=== PATIENT | female | born 1990 | race Caucasian/White ===

== ENCOUNTER 2016-11-22 11:48 | Inpatient (IN) | payer OTHER ==
[~2016-11-22] VITALS: Ht 165.1 cm; Wt 76.2 kg
[2016-11-23] MEDS ORDERED: ACETAMINOPHEN 325 MG TABLET PO PRN
[2016-11-23] MEDS ORDERED: METHOCARBAMOL 750 MG TABLET PO PRN
[2016-11-23] MEDS ORDERED: HYDROXYZINE PAMOATE 25 MG CAPSULE PO PRN
[2016-11-23] MEDS ORDERED: LORAZEPAM 1 MG TABLET PO PRN ×2
[2016-11-23] MEDS ORDERED: DICYCLOMINE HCL 20 MG TABLET PO PRN
[2016-11-23] MEDS ORDERED: diphenhydrAMINE 50 MG CAPSULE PO PRN
[2016-11-23] MEDS ORDERED: CLONIDINE HCL 0.1 MG TABLET PO PRN
[2016-11-23] MEDS ORDERED: LORAZEPAM 2 MG/1 ML VIAL IM PRN
[2016-11-23] MEDS ORDERED: IBUPROFEN 600 MG TABLET PO PRN
[2016-11-23] MEDS ORDERED: BUPRENORPHINE HCL 2 MG TAB.SUBL SL PRN
[2016-11-23] MEDS ORDERED: MAG HYDROX/AL HYDROX/SIMETH 30 ML LIQUID UDC PO PRN
[2016-11-23] MEDS ORDERED: MAGNESIUM HYDROXIDE 30 ML LIQUID UDC PO PRN
[2016-11-23] MEDS ORDERED: ONDANSETRON ODT 4 MG TAB.RAPDIS SL PRN
[2016-11-23] MEDS ORDERED: LOPERAMIDE HCL 2 MG CAPSULE PO PRN ×2
[2016-11-23] MEDS ORDERED: ONDANSETRON 4 MG/2 ML VIAL IM PRN
[2016-11-23] MEDS ORDERED: MIRALAX 17 GM POWD.PACK PO PRN
[2016-11-23 00:40] VITALS: BP 132/79
[2016-11-23 01:55] LABS: *URINE HCG, QUAL NEGATIVE (NEGATIVE)
[2016-11-23] MEDS ORDERED: SERT50TA PO (02:57)
[2016-11-23] MEDS ORDERED: DOXY100C41 PO (02:57)
[2016-11-23] MEDS ORDERED: QUET100T PO (02:57)
[2016-11-23] MEDS ORDERED: DIVA500T7 PO (02:57)
[2016-11-23] MEDS ORDERED: BUPR-51 PO (02:57)
[2016-11-23 04:00] VITALS: BP 141/86
[2016-11-23 04:49] LABS: *AMPHETAMINE, URINE NEGATIVE (NEGATIVE); *BARBITURATE, URINE NEGATIVE (NEGATIVE); *CANNABINOID, URINE POSITIVE (NEGATIVE); *COCCAINE, URINE POSITIVE (NEGATIVE); *OPIATE, URINE POSITIVE (NEGATIVE); *PHENCYCLIDINE SCREEN,URINE NEGATIVE (NEGATIVE)
[2016-11-23 08:00] VITALS: BP 114/71
[2016-11-23 08:36] LABS: BASOPHILS # (AUTO) 0.1 K/uL (0.0-8.0); BASOPHILS % (AUTO) 0.8 % (0.0-2.0); EOSINOPHILS # (AUTO) 0.4 K/uL (0.0-0.7); EOSINOPHILS % (AUTO) 4.1 % (0.0-7.0); HEMATOCRIT 44.1 % (37-47); HEMOGLOBIN 15.5 G/DL (12.0-16.0); LYMPHOCYTES # (AUTO) 4.1 K/UL (0.8-4.8); MEAN CORPUSCULAR HGB CONC 35 g/dL (32.0-37.0); MONOCYTES # (AUTO) 0.7 K/UL (0.1-1.30); MONOCYTES % (AUTO) 7.1 % (0.0-11.0); NEUTROPHILS # (AUTO) 4.2 K/UL (1.8-8.9); PLATELET COUNT (AUTO) 325 K/UL (150-450); RED BLOOD CELL COUNT(AUTO) 4.84 MIL/UL (4.2-5.4); RED CELL DISTRIBUTION WIDTH 11.7 % (11.5-14.5); WHITE BLOOD COUNT (AUTO) 9.5 K/UL (4.0-11.2)
[2016-11-23 08:53] LABS: ETHANOL < 3 MG/DL (0-0)
[2016-11-23] MEDS ORDERED: TUBERCULIN,PURIF.PROT.DERIV. 5 TU/0.1 ML TEST ID ONE (09:00)
[2016-11-23 09:13] LABS: HIV-1 p24 ANTIGEN NON REACTIVE (NONREACTIVE); HIV-1/2 ANTIBODY NON REACTIVE (NONREACTIVE)
[2016-11-23] MEDS: MULTIVITAMINS,THERAPEUTIC TABLET PO SCH (09:29)
[2016-11-23 09:34] LABS: ALANINE AMINOTRANSFERASE 20 U/L (14-59); ALKALINE PHOSPHATASE 57 U/L (50-136); ASPARTATE AMINOTRANSFERASE 17 U/L (15-37); BILIRUBIN,TOTAL 0.9 mg/dL (0.2-1.0); CALCIUM 9.3 mg/dL (8.5-10.1); CARBON DIOXIDE 21 mmol/L (21-32); CHLORIDE 108 mmol/L (98-107); GFR 68 mL/min (>60); GLUCOSE 103 mg/dL (74-106); MAGNESIUM 2.2 mg/dL (1.8-2.4); POTASSIUM 3.5 mmol/L (3.5-5.1); SODIUM SERUM 143 mmol/L (136-145); TOTAL PROTEIN, SERUM 7.7 g/dL (6.4-8.2); UREA NITROGEN, BLOOD 7 mg/dL (7-18)
[2016-11-23 10:46] LABS: THYROID STIMULATING HORMONE 0.163 mIU/mL (0.358-3.740)
[2016-11-23 12:00] VITALS: BP 147/85
[2016-11-23] MEDS: SERTRALINE HCL 50 MG TABLET PO SCH (12:58)
[2016-11-23] MEDS: buPROPion XL 150 MG TAB.SR.24H PO SCH (12:58)
[2016-11-23] MEDS: BUPRENORPHINE HCL 2 MG TAB.SUBL SL SCH ×3 (13:43→22:19)
[2016-11-23] MEDS: GABAPENTIN 300 MG CAPSULE PO SCH ×2 (15:36→22:18)
[2016-11-23 16:00] VITALS: BP 126/79
[2016-11-23 20:00] VITALS: BP 128/90
[2016-11-23] MEDS: QUETIAPINE FUMARATE 100 MG TABLET PO SCH (22:18)
[2016-11-23] MEDS: DIVALPROEX 500 MG TABLET.DR PO SCH (22:18)
[2016-11-24] VITALS: BP 125/68
[2016-11-24 04:00] VITALS: BP 101/63
[2016-11-24 08:00] VITALS: BP 107/57
[2016-11-24] MEDS: PATIENT MAY USE OWN MED- MD OK PO SCH (08:57)
[2016-11-24] MEDS: GABAPENTIN 300 MG CAPSULE PO SCH ×3 (08:58→21:07)
[2016-11-24] MEDS: SERTRALINE HCL 50 MG TABLET PO SCH (08:59)
[2016-11-24] MEDS: buPROPion XL 150 MG TAB.SR.24H PO SCH (08:59)
[2016-11-24] MEDS: MULTIVITAMINS,THERAPEUTIC TABLET PO SCH (08:59)
[2016-11-24] MEDS: BUPRENORPHINE HCL 2 MG TAB.SUBL SL SCH ×3 (09:00→21:08)
[2016-11-24 12:00] VITALS: BP 113/63
[2016-11-24] MEDS: BACLOFEN 10 MG TABLET PO SCH ×2 (14:47→21:07)
[2016-11-24] MEDS: FLUTICASONE PROP NASAL SPRAY 16 GM BOTTLE NS SCH (14:51)
[2016-11-24 16:00] VITALS: BP 121/68
[2016-11-24 20:59] VITALS: BP 145/67
[2016-11-24] MEDS: DIVALPROEX 500 MG TABLET.DR PO SCH (21:07)
[2016-11-24] MEDS: QUETIAPINE FUMARATE 100 MG TABLET PO SCH (21:08)
[2016-11-25 01:00] VITALS: BP 118/64
[2016-11-25 04:10] VITALS: BP 111/90
[2016-11-25 08:00] VITALS: BP 113/48
[2016-11-25 08:06] LABS: HCV AB >11.0 s/co ratio (0.0-0.9); HEPATITIS B CORE AB, IgM Negative (Negative); HEPATITIS B SURFACE AG Negative (Negative)
[2016-11-25] MEDS ORDERED: BUPRENORPHINE HCL 2 MG TAB.SUBL SL SCH (09:00)
[2016-11-25] MEDS: SERTRALINE HCL 50 MG TABLET PO SCH (09:00)
[2016-11-25] MEDS: PATIENT MAY USE OWN MED- MD OK PO SCH (09:00)
[2016-11-25] MEDS: BACLOFEN 10 MG TABLET PO SCH ×3 (09:00→21:37)
[2016-11-25] MEDS: buPROPion XL 150 MG TAB.SR.24H PO SCH (09:00)
[2016-11-25] MEDS: MULTIVITAMINS,THERAPEUTIC TABLET PO SCH (09:00)
[2016-11-25] MEDS: FLUTICASONE PROP NASAL SPRAY 16 GM BOTTLE NS SCH (09:00)
[2016-11-25] MEDS: GABAPENTIN 300 MG CAPSULE PO SCH ×3 (09:00→21:36)
[2016-11-25 12:00] VITALS: BP 123/76
[2016-11-25] MEDS: BUPRENORPHINE HCL 2 MG TAB.SUBL SL SCH ×2 (15:32→21:38)
[2016-11-25 16:00] VITALS: BP 126/74
[2016-11-25 20:30] VITALS: BP 128/72
[2016-11-25] MEDS: DICYCLOMINE HCL 20 MG TABLET PO SCH (21:36)
[2016-11-25] MEDS: DIVALPROEX 500 MG TABLET.DR PO SCH (21:36)
[2016-11-25] MEDS ORDERED: QUETIAPINE FUMARATE 200 MG TABLET ONE (21:42)
[2016-11-25] MEDS: QUETIAPINE FUMARATE 100 MG TABLET PO SCH (22:12)
[2016-11-25] MEDS ORDERED: QUETIAPINE FUMARATE 100 MG TABLET ONE (22:20)
[2016-11-26 00:25] VITALS: BP 122/77
[2016-11-26 04:15] VITALS: BP 120/67
[2016-11-26 08:00] VITALS: BP 132/72
[2016-11-26] MEDS: FLUTICASONE PROP NASAL SPRAY 16 GM BOTTLE NS SCH (08:50)
[2016-11-26] MEDS: buPROPion XL 150 MG TAB.SR.24H PO SCH (08:51)
[2016-11-26] MEDS: GABAPENTIN 300 MG CAPSULE PO SCH ×3 (08:51→21:19)
[2016-11-26] MEDS: MULTIVITAMINS,THERAPEUTIC TABLET PO SCH (08:51)
[2016-11-26] MEDS: SERTRALINE HCL 50 MG TABLET PO SCH (08:51)
[2016-11-26] MEDS: BACLOFEN 10 MG TABLET PO SCH (08:52)
[2016-11-26] MEDS: PATIENT MAY USE OWN MED- MD OK PO SCH (08:57)
[2016-11-26] MEDS: DICYCLOMINE HCL 20 MG TABLET PO SCH ×3 (08:58→21:00)
[2016-11-26] MEDS ORDERED: BUPRENORPHINE HCL 2 MG TAB.SUBL SL SCH (09:00)
[2016-11-26 12:00] VITALS: BP 112/59
[2016-11-26] MEDS ORDERED: BACLOFEN 10 MG TABLET PO PRN (12:30)
[2016-11-26 13:34] LABS: THYROID STIMULATING HORMONE 0.401 mIU/mL (0.358-3.740)
[2016-11-26 14:02] LABS: CALCIUM 8.5 mg/dL (8.5-10.1); CREATININE 0.8 mg/dL (0.6-1.3); MAGNESIUM 1.9 mg/dL (1.8-2.4)
[2016-11-26 14:07] LABS: FOLIC ACID 18.7 NG/ML (8.6-58.9)
[2016-11-26 15:11] LABS: *AMPHETAMINE, URINE NEGATIVE (NEGATIVE); *BARBITURATE, URINE NEGATIVE (NEGATIVE); *CANNABINOID, URINE NEGATIVE (NEGATIVE); *COCCAINE, URINE NEGATIVE (NEGATIVE); *OPIATE, URINE NEGATIVE (NEGATIVE); *PHENCYCLIDINE SCREEN,URINE NEGATIVE (NEGATIVE)
[2016-11-26] MEDS ORDERED: Baclofen PO (15:43)
[2016-11-26] MEDS ORDERED: Gabapentin PO ×2 (15:43)
[2016-11-26] MEDS ORDERED: CLON0.1T14 PO (15:43)
[2016-11-26] MEDS ORDERED: HYDR-3895 PO (15:43)
[2016-11-26] MEDS ORDERED: DIPH50CA37 PO (15:43)
[2016-11-26] MEDS ORDERED: Ibuprofen PO (15:43)
[2016-11-26] MEDS ORDERED: DICY20TA28 PO (15:43)
[2016-11-26 16:00] VITALS: BP 130/81
[2016-11-26 20:00] VITALS: BP 123/69
[2016-11-26] MEDS: QUETIAPINE FUMARATE 100 MG TABLET PO SCH (21:19)
[2016-11-26] MEDS: DIVALPROEX 500 MG TABLET.DR PO SCH (21:20)
[2016-11-27 08:08] VITALS: BP 118/61
[2016-11-27] MEDS: FLUTICASONE PROP NASAL SPRAY 16 GM BOTTLE NS SCH (08:29)
[2016-11-27] MEDS: buPROPion XL 150 MG TAB.SR.24H PO SCH (08:31)
[2016-11-27] MEDS: MULTIVITAMINS,THERAPEUTIC TABLET PO SCH (08:31)
[2016-11-27] MEDS: SERTRALINE HCL 50 MG TABLET PO SCH (08:31)
[2016-11-27] MEDS: GABAPENTIN 300 MG CAPSULE PO SCH (08:31)
[2016-11-27] MEDS: PATIENT MAY USE OWN MED- MD OK PO SCH (08:31)
[2016-11-27] MEDS: DICYCLOMINE HCL 20 MG TABLET PO SCH (08:31)
[2016-11-27] MEDS ORDERED: BUPRENORPHINE HCL 2 MG TAB.SUBL SL SCH (09:00)
== END 2016-11-27 10:05 | disposition other institution (70) | DRG 895 ==
LOC: SRC 23:43
PROVIDERS: ADMIT Internal Medicine; ATTEND Internal Medicine
PROC: HZ2ZZZZ Detoxification Services for Substance Abuse Treatment (ICD-10-PCS; principal; 2016-11-22)
PROC: HZ41ZZZ Group Counseling for Substance Abuse Treatment, Behavioral (ICD-10-PCS; 2016-11-23)
PROC: HZ31ZZZ Individual Counseling for Substance Abuse Treatment, Behavioral (ICD-10-PCS; 2016-11-26)
PROC: 05H533Z Insertion of Infusion Device into Right Subclavian Vein, Percutaneous Approach (ICD-10-PCS; 2016-11-26)
DX: F11.23 Opioid dependence with withdrawal (principal); F14.20 Cocaine dependence, uncomplicated; F17.210 Nicotine dependence, cigarettes, uncomplicated; Z83.3 Family history of diabetes mellitus; Z82.49 Family history of ischemic heart disease and other diseases of the circulatory system; Z81.1 Family history of alcohol abuse and dependence; F12.10 Cannabis abuse, uncomplicated; F10.10 Alcohol abuse, uncomplicated; Y90.9 Presence of alcohol in blood, level not specified; L70.0 Acne vulgaris; R13.10 Dysphagia, unspecified; F31.9 Bipolar disorder, unspecified; F41.9 Anxiety disorder, unspecified; E07.81 Sick-euthyroid syndrome; B19.20 Unspecified viral hepatitis C without hepatic coma
CPT/HCPCS: 36415; 70030-TC; 80164; 80307; 80346; 80349; 80353; 80361; 82306; 82746; 83735; 84443; 84703; 85025; 86580; 86592; 86705; 86803; 87340; 87521; 87806; 92610; A4663; G6040-TC; J3535

== ENCOUNTER 2016-11-26 10:36 | Outpatient (CLI) | payer OTHER ==
[~2016-11-26 10:36] MED LIST: BUPR-51 PO; DIVA500T7 PO; DOXY100C41 PO; QUET100T PO; SERT50TA PO
[2016-11-26] MEDS ORDERED: CLON0.1T14 PO (15:43)
[2016-11-26] MEDS ORDERED: Ibuprofen PO (15:43)
[2016-11-26] MEDS ORDERED: Baclofen PO (15:43)
[2016-11-26] MEDS ORDERED: Gabapentin PO ×2 (15:43)
[2016-11-26] MEDS ORDERED: DIPH50CA37 PO (15:43)
[2016-11-26] MEDS ORDERED: DICY20TA28 PO (15:43)
[2016-11-26] MEDS ORDERED: HYDR-3895 PO (15:43)
[2016-11-26] MEDS ORDERED: DIATR MEGLU/DIATRIZOATE SODIUM 120 ML BOTTLE ONE (15:50)
[2016-11-26] MEDS ORDERED: BARIUM SULFATE 340 GM ONE (16:52)
== END 2016-11-26 23:59 | disposition other institution (70) ==
LOC: RAD 10:36
PROVIDERS: ATTEND Internal Medicine
DX: R13.10 Dysphagia, unspecified (principal); R52 Pain, unspecified
CPT/HCPCS: 36569; Q9963; Q9967